=== PATIENT | female | born 1945 | race Caucasian/White ===

== ENCOUNTER → 2017-01-16 | Outpatient (REF) ==
[~2017-01-16] MED LIST: ATENOLOL PO; IMDUR 60MG60 MG/TAB PO; LISINOPRIL PO; NITROGLYCERIN PO
[2017-01-16 19:30] LABS: TOTAL IRON BINDING CAPACITY 445 ug/dL (265-497)
[2017-01-16 19:56] LABS: FERRITIN 8 ng/mL (11-264)
== END ==
LOC: ZLAB.WCH 18:14
PROVIDERS: Family Medicine
DX: Z01.89 Encounter for other specified special examinations (principal)

== ENCOUNTER → 2017-03-05 | Outpatient (REF) ==
[2017-03-05 18:32] LABS: TOTAL IRON BINDING CAPACITY 327 ug/dL (265-497)
[2017-03-05 18:59] LABS: FERRITIN 22 ng/mL (11-264)
== END ==
LOC: ZLAB.WCH 18:08
PROVIDERS: Family Medicine
DX: Z01.89 Encounter for other specified special examinations (principal)

== ENCOUNTER → 2017-09-05 | Outpatient (REF) | LOC: ZLAB.WCH 08:47 | DX: Z01.89 Encounter for other specified special examinations (principal) ==

== ENCOUNTER → 2018-11-12 | Outpatient (REF) | LOC: ZLAB.WCH 17:11 | DX: Z01.89 Encounter for other specified special examinations (principal) ==

== ENCOUNTER → 2018-12-23 | Outpatient (REF) ==
[2018-12-23 11:18] LABS: THYROID STIMULATING HORMONE 2.29 uIU/mL (0.465-4.680)
== END ==
LOC: ZLAB.WCH 10:27
PROVIDERS: Internal Medicine
DX: Z01.89 Encounter for other specified special examinations (principal)

== ENCOUNTER 2019-01-25 13:46 | Emergency (ER) | payer MEDICARE, BC ==
[~2019-01-25] VITALS: Ht 157.5 cm; Wt 65.9 kg
[~2019-01-25 13:46] MED LIST changes: -IMDUR 60MG60 MG/TAB PO
[2019-01-25 14:08] VITALS: BP 167/74; TEMP 98.7
[2019-01-25] MEDS ORDERED: PLAVIX 75MG TAB75 MG PO (17:03)
[2019-01-25] MEDS ORDERED: AMBIEN 5MG TABLE5 MG PO (17:03)
[2019-01-25] MEDS ORDERED: COREG12.5 MG PO (17:04)
[2019-01-25] MEDS ORDERED: LEXAPRO 10MG10 MG PO (17:04)
[2019-01-25] MEDS ORDERED: PRINIVIL40 MG PO (17:05)
[2019-01-25] MEDS ORDERED: NITROSTAT0.4 MG/TAB SL (17:06)
[2019-01-25] MEDS ORDERED: BACTROBAN 22GM22 GM NAS (17:06)
[2019-01-25] MEDS ORDERED: PROTONIX 40MG T40 MG PO (17:07)
[2019-01-25] MEDS ORDERED: IMDUR 60MG60 MG/TAB PO (17:08)
[2019-01-25] MEDS ORDERED: ASPIRIN E.C. 8181 MG PO (17:09)
[2019-01-25] MEDS ORDERED: PROVENTIL0.09 MG/A1 IH (17:10)
[2019-01-25] MEDS ORDERED: ALBUTEROL0.83 MG/ML IH (17:11)
[2019-01-25 18:00] VITALS: PULSE 54
== END 2019-01-25 18:00 | disposition home or self-care (01) ==
LOC: COL.ER 13:46
DX: K59.00 Constipation, unspecified (principal); I25.10 Atherosclerotic heart disease of native coronary artery without angina pectoris; N18.9 Chronic kidney disease, unspecified; J44.9 Chronic obstructive pulmonary disease, unspecified; I50.9 Heart failure, unspecified; I73.9 Peripheral vascular disease, unspecified; Z79.02 Long term (current) use of antithrombotics/antiplatelets; Z79.82 Long term (current) use of aspirin

== ENCOUNTER 2020-02-28 21:25 | Inpatient (IN) | payer MEDICARE, BC ==
[~2020-02-28] VITALS: Ht 157.5 cm; Wt 73.5 kg
[~2020-02-28 21:25] MED LIST changes: +ALBUTEROL0.83 MG/ML IH; +AMBIEN 5MG TABLE5 MG PO; +ASPIRIN E.C. 8181 MG PO; +BACTROBAN 22GM22 GM NAS; +COREG12.5 MG PO; +IMDUR 60MG60 MG/TAB PO; +LEXAPRO 10MG10 MG PO; +NITROSTAT0.4 MG/TAB SL; +PLAVIX 75MG TAB75 MG PO; +PRINIVIL40 MG PO; +PROTONIX 40MG T40 MG PO; +PROVENTIL0.09 MG/A1 IH
[2020-02-28] MEDS ORDERED: RANEXA 500MG T500 MG PO (21:35)
[2020-02-28] MEDS ORDERED: LASIX 40MG TABL40 MG PO (21:36)
[2020-02-28] MEDS ORDERED: APRESOLINE50 MG PO (21:36)
[2020-02-28 22:32] LABS: BASO % 0.5 % (0.0-2.0); EOS # 0.1 (0.0-0.7); EOS % 1.3 % (0-4.0); GRAN % 84.9 % (42.2-75.2); HEMOGLOBIN 10.6 g/dl (12.5-16.0); LYMPH # 0.4 (1.2-3.4); LYMPH % 4.7 % (20.0-51.0); MEAN CELL VOLUME 95 fl (80.0-100.0); MEAN CORPUSCULAR HEMOGLOBIN 30 pg (27.0-31.0); MEAN CORPUSCULAR HGB CONC 32 g/dl (33.0-37.0); MEAN PLATELET VOLUME 10.8 fl (7.4-10.4); MONO # 0.6 (0.1-0.6); MONO % 7.3 % (1.7-9.3); PLATELET COUNT 171 K/mm3 (130-400); REDCELL DISTRIBUTION WIDTH-CV 15.4 % (11.5-14.5)
[2020-02-28 22:39] LABS: HEMATOCRIT 33.1 % (37.0-47.0)
[2020-02-28 22:43] LABS: ALBUMIN 3.8 gm/dL (3.5-5.0); BILIRUBIN,TOTAL 0.5 mg/dL (0.0-1.0); CALCIUM 8.3 mg/dL (8.4-10.2); CREATININE, serum 2.96 (0.52-1.25); POTASSIUM 4.4 mmol/L (3.4-5.0); TOTAL PROTEIN 6.3 gm/dL (6.4-8.2)
[2020-02-28 22:48] LABS: INR 0.9 (0.8-3.0); PROTHROMBIN TIME 9.9 SECONDS (9.7-12.8)
[2020-02-28 23:38] LABS: COLLECTION METHOD CATHETER
[2020-02-28 23:59] LABS: PH 6 (5-8); SQUAMOUS EPITHELIAL None Seen /hpf; URINE APPEARANCE Clear; URINE BACTERIA None Seen /hpf; URINE BILIRUBIN Negative (NEGATIVE); URINE BLOOD Negative (NEGATIVE); URINE COLOR Yellow; URINE GLUCOSE Negative (NEGATIVE); URINE KETONE Negative (NEGATIVE); URINE LEUKOCYTE ESTERASE Negative (NEGATIVE); URINE NITRATE Negative (NEGATIVE); URINE PROTEIN(semi-quant) Negative (NEGATIVE); URINE RBC 0-2 /hpf; URINE UROBILINOGEN Negative (NEGATIVE)
[2020-02-29] VITALS (250 sets, daily range): BP systolic 91–179; BP diastolic 35–70; PULSE 54–87; TEMP 97.2–98.9; O2SAT 87–100
[2020-02-29] MEDS ORDERED: BENADRYL50 MG PO (01:46)
[2020-02-29] MEDS ORDERED: MUCINEX 60600 MG/TA1 PO (01:47)
[2020-02-29] MEDS ORDERED: OMEGA-3 1000 MG1 CAP PO (01:48)
[2020-02-29] MEDS ORDERED: APRESOLINE50 MG PO (01:53)
[2020-02-29] MEDS ORDERED: HYDRALAZINE HC100 MG PO (01:54)
--- NOTE | 2020-02-29 04:24 | NUR ---
Patient states pain 9/10 upon arrival to the floor. PRN morphine 2mg administered with relief to an 8/10. Carolann Portillo updated and pain medication switched to Dilaudid PRN. This was administered and effective as evidenced by patient sleeping upon reassessment. 2L oxygen via nasal cannula to keep oxygen saturations above 90%. Patient wears 2L at baseline at home during the night. IVF continue to left wrist. Magana catheter present and draining slightly cloudy, yellow urine. 5 page completed. Med rec completed with and he stressed the importance of keeping the times she takes them. This was discussed with Bandar Vuong and SOUMYAR updated. also stated that patient is allergic to the "new surgical scrub they use now and she breaks out in a really bad rash". He states she has no reactions to betadine. Carolann updated on this and will pass this on to day shift nurse and ortho. Patient noted to be hypertensive upon arrival to the unit. Caroalnn Portillo APRN notified and ordered PRN IV Hydralazine. Administered and effective.
--- NOTE | 2020-02-29 07:00 | NUR ---
CALLED CARDIOLOGY & NEPHROLOGY CONSULTS. SEE ORDERS.
[2020-02-29 07:14] LABS: BASO % 0.3 % (0.0-2.0); EOS # 0.1 (0.0-0.7); EOS % 0.7 % (0-4.0); GRAN # 6.1 (1.4-6.5); GRAN % 81.9 % (42.2-75.2); HEMOGLOBIN 10.2 g/dl (12.5-16.0); LYMPH # 0.4 (1.2-3.4); LYMPH % 5.8 % (20.0-51.0); MEAN CELL VOLUME 96 fl (80.0-100.0); MEAN CORPUSCULAR HEMOGLOBIN 30 pg (27.0-31.0); MEAN CORPUSCULAR HGB CONC 31 g/dl (33.0-37.0); MEAN PLATELET VOLUME 10.8 fl (7.4-10.4); MONO # 0.8 (0.1-0.6); MONO % 10.2 % (1.7-9.3); PLATELET COUNT 146 K/mm3 (130-400); RED BLOOD COUNT 3.39 M/mm3 (4.10-5.30); REDCELL DISTRIBUTION WIDTH-CV 15.3 % (11.5-14.5)
--- NOTE | 2020-02-29 07:15 | NUR ---
PATIENT PLACED ON TELE
[2020-02-29 07:18] LABS: HEMATOCRIT 32.6 % (37.0-47.0)
[2020-02-29 07:26] LABS: ALBUMIN 3.7 gm/dL (3.5-5.0); BILIRUBIN,TOTAL 0.3 mg/dL (0.0-1.0); CALCIUM 8.5 mg/dL (8.4-10.2); CREATININE, serum 2.63 (0.52-1.25); POTASSIUM 4.2 mmol/L (3.4-5.0); TOTAL PROTEIN 6.2 gm/dL (6.4-8.2)
[2020-02-29 07:27] LABS: INR 0.9 (0.8-3.0); PROTHROMBIN TIME 10.2 SECONDS (9.7-12.8)
[2020-02-29 07:33] LABS: PRE ALBUMIN 32.6 mg/dL (17.6-36.0)
--- NOTE | 2020-02-29 08:00 | NUR ---
PATIENT IS A&O. VSS. PATIENT C/O PAIN IN LLE RATED AT 6/10. GAVE PRN IV DILAUDID. PATIENT IS ON BEDREST, SURGERY PENDING. BEDREST. PATIENT HAS SIGNIFICANT CARDIAC HX, SEE CONSULTS. VSS. TELE INPLACE. PATIENT IS NPO. IV FLUIDS INFUSING VIA PUMP INTO LEFT WRIST IV. RENATA TO BRANDT. CONSENT ON CHART. HEAD TO TOE ASSESSMENT COMPLETE. PATIENT RESTING IN BED WITH NO OTHER NEEDS. CALL LIGHT IN REACH.
--- NOTE | 2020-02-29 12:43 | NUR ---
First visit from the youth director. No needs right now.
--- NOTE | 2020-02-29 12:56 | NUR ---
LILIANA met with the patient and her , Francisco J Leavitt to complete initial intake. The patient lives in [place] with Francisco J. The patient has a cane, walker, and uses 3L of oxygen at night and during the day while napping. The patient's PCP is Dr. Tanner and patient receives medications from [facility] with no difficulties. The patient does not have advanced directives in the EMR but they are completed. The patient provided a copy, it was placed in the patient's chart. The patient may be needing post acute rehab. LILIANA presented Medicare.gov's list of post acute rehab in [place]. The patient and her 's first choice is [place] [facility] and second choice is [facility]. Referrals sent. Will continue to monitor.
--- NOTE | 2020-02-29 13:24 | NUR ---
PATIENT GOING DOWN FOR BALDEMAR SCAN. GAVE PRN IV DILAUDID
--- NOTE | 2020-02-29 14:39 | NUR ---
PATIENT NOW BACK IN ROOM AFTER BALDEMAR SCAN
--- NOTE | 2020-02-29 15:15 | NUR ---
PATIENT GOING DOWN TO INTERNATIONAL FIRST OFFICER FOR CARDIAC CATH
--- NOTE | 2020-02-29 16:20 | NUR ---
LATHE SET UP PERSON NOTIFIED NURSING THAT PATIENT WILL BE GOING TO ICU POST HEART CATH.
--- NOTE | 2020-02-29 16:23 | NUR ---
SEE MERGE DOCUMENTATION FOR MEDICATION ADMINISTRATION AND INTRA/POST PROCEDURE SEDATION ASSESSMENTS.
--- NOTE | 2020-02-29 16:40 | NUR ---
CALLED REPORT TO ICU NURSE. PATIENT GOING TO ICU15
--- NOTE | 2020-02-29 17:40 | NUR ---
ARRIVES TO ICU 17 VIA BED FROM AQUARIST WITH RN X2 AT BEDSIDE. PT AWAKENS EASILY. RIGHT RADIAL CATH SITE ASSESSED WITH TR IN PLACE WITH MONICA MCBRIDE. NO BLEEDING AT THIS TIME. MONITORS APPLIED. CALL LIGHT AT SIDE. DENIES NEEDS AT THIS TIMES.
--- NOTE | 2020-02-29 20:00 | NUR ---
UNABLE TO ASSESS PT'S BACK SHE REFUSED DUE TO PAIN. PT REFUSED TURNING WELL.
[2020-02-29 20:26] LABS: INR 1.6 (0.8-3.0); PROTHROMBIN TIME 17.9 SECONDS (9.7-12.8)
[2020-02-29 20:29] LABS: CALCIUM 8.3 mg/dL (8.4-10.2); CREATININE, serum 2.34 (0.52-1.25); POTASSIUM 4.1 mmol/L (3.4-5.0)
[2020-02-29 20:30] LABS: MEAN CELL VOLUME 97 fl (80.0-100.0); MEAN CORPUSCULAR HGB CONC 31 g/dl (33.0-37.0); MEAN PLATELET VOLUME 10.9 fl (7.4-10.4); PLATELET COUNT 147 K/mm3 (130-400); REDCELL DISTRIBUTION WIDTH-CV 15.2 % (11.5-14.5)
[2020-02-29 20:33] LABS: HEMATOCRIT 30.9 % (37.0-47.0); HEMOGLOBIN 9.5 g/dl (12.5-16.0); MEAN CORPUSCULAR HEMOGLOBIN 30 pg (27.0-31.0)
[2020-02-29 21:11] LABS: PARTIAL THROMBOPLASTIN TIME 146.4 SECONDS (26.0-37.0)
--- NOTE | 2020-02-29 21:40 | NUR ---
TR BAND RELEASED BY 4 ML OF AIR. 1O ML OF AIR LEFT IN BAND. NO BLEEDING OR HEMATOMA NOTED.
--- NOTE | 2020-02-29 21:50 | NUR ---
PTT AF 146.4 REPORTED TO SHASHANK STOKES. REPEAT LABS IN AM PER DISTRICT ENGINEER'S ORDER.
--- NOTE | 2020-02-29 22:45 | NUR ---
TR BAND RELEASED BY 5 ML OF AIR. NOW 5 ML OF AIR LEFT. NO SIGNS OF BEEDING AND HEMATOMA NOTED.
--- NOTE | 2020-02-29 23:50 | NUR ---
TR BAND COMPLETELY OFF. BAND AID APPLIED TO SITE. NOW CLEAN, DRY AND INTACT.
--- NOTE | 2020-02-29 23:56 | NUR ---
PT HAS NITROGLYCERINE DRIP RUNNING AT 10 MCG/MIN AT 3 ML. NO ACTIVE ORDER IS ON THE MAR AND PREVIOUS ORDER WAS DISCONTINUED. THIS RN TRIED CALLING DR. MCGEE 3X TO VERIFY ORDER, FIRST AT 2243, 2300, AND 2355. STILL AWAITING FOR CALL BACK AT THIS TIME.
[2020-03-01] VITALS (416 sets, daily range): BP systolic 93–145; BP diastolic 43–88; PULSE 53–77; TEMP 97.8–98.4; O2SAT 89–100
[2020-03-01 05:24] LABS: BASO % 0.4 % (0.0-2.0); EOS # 0.1 (0.0-0.7); EOS % 1.7 % (0-4.0); GRAN # 6.5 (1.4-6.5); GRAN % 82.9 % (42.2-75.2); LYMPH # 0.3 (1.2-3.4); LYMPH % 3.8 % (20.0-51.0); MEAN CELL VOLUME 97 fl (80.0-100.0); MEAN CORPUSCULAR HGB CONC 31 g/dl (33.0-37.0); MEAN PLATELET VOLUME 10.6 fl (7.4-10.4); MONO # 0.8 (0.1-0.6); MONO % 9.8 % (1.7-9.3); PLATELET COUNT 146 K/mm3 (130-400); REDCELL DISTRIBUTION WIDTH-CV 15.3 % (11.5-14.5)
[2020-03-01 05:31] LABS: HEMATOCRIT 31.1 % (37.0-47.0); HEMOGLOBIN 9.5 g/dl (12.5-16.0); MEAN CORPUSCULAR HEMOGLOBIN 30 pg (27.0-31.0)
[2020-03-01 05:33] LABS: CALCIUM 8.8 mg/dL (8.4-10.2); CREATININE, serum 2.56 (0.52-1.25); POTASSIUM 4.2 mmol/L (3.4-5.0)
[2020-03-01 05:54] LABS: PROTHROMBIN TIME 10.9 SECONDS (9.7-12.8)
[2020-03-01 05:56] LABS: PARTIAL THROMBOPLASTIN TIME 37.2 SECONDS (26.0-37.0)
--- NOTE | 2020-03-01 07:10 | NUR ---
report given to MONICA Nicolas.
--- NOTE | 2020-03-01 07:15 | NUR ---
Report received from Lourdes ANDERSON and care resumed.
--- NOTE | 2020-03-01 08:15 | NUR ---
Dr Soni in to see pt at this time. Clarified nitro as drip was infusing but no orders. Verbal order received to dc at this time.
--- NOTE | 2020-03-01 11:40 | NUR ---
Received call from OR that pt was going for surgery in about 10 minutes. No orders placed. Will call Dr Multani.
--- NOTE | 2020-03-01 11:52 | NUR ---
Dr Mckeon in to see pt at this time.
--- NOTE | 2020-03-01 12:08 | NUR ---
Pt to OR per bed at this time.
--- NOTE | 2020-03-01 12:13 | NUR ---
Report called to Bonnie ANDERSON on surgical floor.
--- NOTE | 2020-03-01 14:45 | NUR ---
Patient is back from surgery. She is drowsy and oriented. Denies nausea at this time. Oriented patient to room. Her is at bedside. Dressing to left hip is C/D/I. Patient stated she is uncomfortably but is not able to stay awake enough to rate pain. No other changes at this time. Call light within reach.
--- NOTE | 2020-03-01 18:30 | NUR ---
Patient is doing well this evening. [place] given for pain, she stated it is helping. No complaints of nausea. Explained she needs to be doing ankle pumps and using her incentive spirometer. Patient is wanting a nicotine patch, notified hospitalist. No other changes at this time. Call light within reach.
--- NOTE | 2020-03-01 20:00 | NUR ---
Pt in bed. Previously walked to bathroom with 2 assist and walker to have a BM, only passed flatus. Has blandon catheter to BSD with yellow urine. Taking fluids well. Reports pain to left hip 5/10, has bulky dressing D/I. Wearing oxygen at 2L/nc, wears at home. Is alert and oriented x4. Medicated with HS meds including [place] 2 tabs po and placed Nicotene patch on right deltoid. SL to left hand, flushes well.
--- NOTE | 2020-03-01 23:57 | NUR ---
Medicated with Ambien 10mg po for sleep and [place] 2 tabs po at this time for pain 6/10 to left leg/hip. Asked about Hydralazine for her BP, none needed at this time.
[2020-03-02] VITALS (7 sets, daily range): BP systolic 113–178; BP diastolic 41–63; PULSE 67–82; TEMP 97.8–99
--- NOTE | 2020-03-02 05:12 | NUR ---
Pt awake, given scheduled AM meds and [place] 2 tabs at this time for pain to left leg 12/09.
--- NOTE | 2020-03-02 07:00 | NUR ---
Patient is very agitated and is yelling at staff during shift change this morning. Patient appears to be unhappy that he was put on the bedpan eariler in the shift. Patient is also loudly demanding breakfast, patient was assured that it would arrive soon, and was offered toast or cereal in the meantime, he refused both. Patient is requesting his , informed patient that his is not here, assured him we could call her during her specified hours of availablility. Patient educated unified communications engineer light use as the most effective method of communicating his needs. Patient verbalizes understaning. Call light within reach.
[2020-03-02 07:55] LABS: CALCIUM 8.4 mg/dL (8.4-10.2); CREATININE, serum 4.2 (0.52-1.25); POTASSIUM 5.3 mmol/L (3.4-5.0)
[2020-03-02 07:58] LABS: BASO % 0.3 % (0.0-2.0); GRAN % 89.2 % (42.2-75.2); LYMPH # 0.1 (1.2-3.4); LYMPH % 1.5 % (20.0-51.0); MEAN CELL VOLUME 93 fl (80.0-100.0); MEAN CORPUSCULAR HGB CONC 32 g/dl (33.0-37.0); MEAN PLATELET VOLUME 11.8 fl (7.4-10.4); MONO # 0.6 (0.1-0.6); MONO % 7.7 % (1.7-9.3); PLATELET COUNT 145 K/mm3 (130-400); RED BLOOD COUNT 2.58 M/mm3 (4.10-5.30)
--- NOTE | 2020-03-02 08:00 | NUR ---
Patient resting in bed eating breakfast at this time. Patient is alert and oriented, answers questions appropriately. Patient reports that pain is well controlled at this time. Magana in place per order. Bulky dressing on left hip is CDI. Patient denies further needs at this time, call light within reach.
--- NOTE | 2020-03-02 08:00 | NUR ---
Patient resting upon entering room. Administered PO medications per order, paitent able to swallow them whole with no difficulties. Set up patient breakfast and cut necessary breakfast items. Coffee made to patient specifications and drinks arranged per his prefrence. Patient denies needs at this time, call light within reach, patient is reminded to use it when he has needs, patient verbalized understanding.
[2020-03-02 08:21] LABS: HEMATOCRIT 24.1 % (37.0-47.0); HEMOGLOBIN 7.7 g/dl (12.5-16.0); MEAN CORPUSCULAR HEMOGLOBIN 30 pg (27.0-31.0)
--- NOTE | 2020-03-02 09:00 | NUR ---
Patient agitated, yelling, and shaking bedrails/table upon entering room. Patient complains that his call light does not work, no one answers the call light, and no one has come to help him. Assured patient that his call light does work, informed him that his call light was answered, but he may not have heard. Assisted patient to use the urinal, voided approximately 100 ml of clear yellow urine. Patient has eaten 100% of breakfast, removed tray per patient request. Patient denies further needs, call light witin reach.
--- NOTE | 2020-03-02 10:30 | NUR ---
Patient remains intermittently agitated when staff members do not respond to call light as soon as it is answered. Upon entering the room, patient states that his calls are being ignored and that he has been waiting for over half an hour with no help. Assured patient that his call light was answered because staff was informed he needed help. Patient voided approximately 75 ml of clear yellow urine in the urinal. Gave patient room phone and informed him he could call his . Patient calling at this time.
--- NOTE | 2020-03-02 10:59 | NUR ---
LILIANA contacted the patient's to discuss the plan. He was agreeable to home with [facility]. Will continue to follow.
--- NOTE | 2020-03-02 17:30 | NUR ---
Patient resting in bed at this time. Patient is alert and oriented, answers questions appropriately. Patient reports that her pain is well controlled after pain medication. Magana removed per order, 10 ml of water removed from balloon, catheter tip intact upon removal, patient tolerated procedure well. Patient denies further needs at this time, call light within reach.
[2020-03-02 17:44] LABS: HEMATOCRIT 23.2 % (37.0-47.0); HEMOGLOBIN 7.5 g/dl (12.5-16.0)
--- NOTE | 2020-03-02 19:43 | NUR ---
Notified Derrick MCGEE regarding elevated B/P and pt normally takes Hydralazine.
--- NOTE | 2020-03-02 21:37 | NUR ---
PT IN BED, HAS NOT VOIDED SINCE YANEZ REMOVED. IS ALERT AND ORIENTED X4. HAS IVF INFUSING TO LEFT HAND WITHOUT PROBLEM. HAS ELEVATED B/P, IV HYDRALAZINE 10MG GIVEN AT THIS TIME FOR B/P 178/63. HS MEDS INCLUDING NORCO 2 TABS GIVEN AT THIS TIME WELL. BULKY DRSG TO LEFT HIP INTACT. SCD'S/TEDS ON.
--- NOTE | 2020-03-02 23:30 | NUR ---
B/P IMPROVED TO 150/46.
[2020-03-03] VITALS (11 sets, daily range): BP systolic 126–198; BP diastolic 47–89; PULSE 60–82; TEMP 97.7–98.4
--- NOTE | 2020-03-03 01:26 | NUR ---
Pt felt like her B/P was elevated, medicated with Hydralazine 10mg IVP for B/P 193/71.
--- NOTE | 2020-03-03 02:04 | NUR ---
PT B/P DOWN TO 175/61. PT REPORTS PAIN TO LEFT HIP, MEDICATED WITH DILAUDID AT THIS TIME.
--- NOTE | 2020-03-03 04:56 | NUR ---
PT UP TO BATHROOM, VOIDS AND BACK TO BED. GAIT SLOW, UNSTEADY. MEDICATED WITH NORCO 2 TABS ONCE BACK TO BED.
[2020-03-03 06:51] LABS: MEAN CELL VOLUME 94 fl (80.0-100.0); MEAN CORPUSCULAR HGB CONC 32 g/dl (33.0-37.0); MEAN PLATELET VOLUME 11.2 fl (7.4-10.4); PLATELET COUNT 181 K/mm3 (130-400); RED BLOOD COUNT 2.78 M/mm3 (4.10-5.30); REDCELL DISTRIBUTION WIDTH-CV 15.2 % (11.5-14.5)
[2020-03-03 06:52] LABS: HEMOGLOBIN 8.4 g/dl (12.5-16.0); MEAN CORPUSCULAR HEMOGLOBIN 30 pg (27.0-31.0)
--- NOTE | 2020-03-03 07:00 | NUR ---
Bedside shift report received from MONICA Colon. pT in bed resting, denies needs, 02 at 3L will continue to monitor.
[2020-03-03 07:02] LABS: CALCIUM 8.4 mg/dL (8.4-10.2); POTASSIUM 5.3 mmol/L (3.4-5.0)
[2020-03-03 07:32] LABS: BAND 10 % (0-10); LYMPHOCYTE 5 % (20.0-51.0); NEUTROPHILS 81 % (42.0-75.2); PLATELET ESTIMATE NORMAL (NORMAL)
--- NOTE | 2020-03-03 08:33 | NUR ---
Assessmetn charted. PT removed own 02 and upon assessment pt 02 levels were 60%, replaced 02 and pt able to get back to 93% on 3L NC. Pt is sleepy and lethargic this morning, reviewed labs. LLE has 3 dressings, replaced per orders with gauze and tegaderm. IVF to LH. Denies other needs, will continue to monitor.
--- NOTE | 2020-03-03 08:39 | NUR ---
LILIANA contacted Inge with [facility] and they can take the patient on for services. She can start on Friday and the patient and her were in agreeance.
--- NOTE | 2020-03-03 11:09 | NUR ---
Bladder scan completed by MONICA Mathews. PT had 28mls at most in bladder, has only voidedx1 since 1700 on 03/02/20. notified hospitalist.
--- NOTE | 2020-03-03 12:01 | NUR ---
Call received from Francisco J regarding pt status and needs, he is frustrated that he has not received updates from the physicians and his is unable to retain and pass onto effectively. Calling hospitalist to pass on information.
--- NOTE | 2020-03-03 17:23 | NUR ---
Daughter called, very concerned regarding home hydralizine being on hold at this time. She is very concerned that her mother is having active chest pain from high blood pressure during the night, reivewed IV hydralazine options but daughter remains concerned.
--- NOTE | 2020-03-03 18:41 | NUR ---
Pt called out and reported that "she was puking", upon entry pt had vomited, called and reports pt c/o shortness of breath, pt has not called and reported any of these symptoms to the staff but is calling family or notifying family of these symptoms. RT provided breathing treatment and pt oxygenation is adequate. Notified hospitalist several times over shift of patient complaints. Resting in bed, will give bedside shift report to nightshift nurse who will resume care.
--- NOTE | 2020-03-03 19:14 | NUR ---
Pt continues to c/o shortnes of breath and nausea. calling SHASHANK Corbett on nights for hospitalist and will update her with complaints.
--- NOTE | 2020-03-03 19:35 | NUR ---
PT REPORTS FEELING "BAD". HAS NAUSEA AND PAIN TO LEFT HIP. MEDICATED WITH ZOFRAN 4MG IVP AND DILAUDID 0.5MG IVP PT FELT SHE WOULD VOMIT IF SHE TOOK PO MEDS. RESTARTED IV SITE TO RIGHT FOREARM. DC'D LEFT HAND SITE. LUNGS CLEAR, INCREASED OXYGEN TO 4L/NC TO GET PT TO 90%. EYES ARE PUFFY AND ABD IS DISTENDED. DENIES NEED TO URINATE OR HAVE BM.
--- NOTE | 2020-03-03 19:43 | NUR ---
SBP 175, MEDICATED WITH HYDRALAZINE 10MG IVP AT THIS TIME. PT AFFECT FLAT, DOES NOT OPEN EYES WHEN SPOKEN TO.
[2020-03-03 19:50] LABS: CALCIUM 7.9 mg/dL (8.4-10.2); CREATININE, serum 6.57 (0.52-1.25)
[2020-03-03 20:17] LABS: POTASSIUM 5.8 mmol/L (3.4-5.0)
--- NOTE | 2020-03-03 22:00 | NUR ---
INSERTED #16FR YANEZ CATHETER TO BSD, RETURN OF HAZY YELLOW URINE 40CC. MEDICATED WITH IV PHENERGAN 25MG PRIOR TO DOSE OF 45GM OF KAEXALATE. IV LASIX 40MG GIVEN WELL. PT WITHOUT N/V AT THIS TIME.
--- NOTE | 2020-03-03 22:26 | NUR ---
MEDICATED WITH IV MORPHINE FOR LEFT HIP PAIN. TAKES ORAL APRESOLINE AT THIS TIME FOR ELEVATED B/P AND HEADACHE.
--- NOTE | 2020-03-03 23:30 | NUR ---
Pt denies needs at this time.
[2020-03-04] VITALS (7 sets, daily range): BP systolic 129–182; BP diastolic 53–69; PULSE 62–105; TEMP 98.1–99.1
--- NOTE | 2020-03-04 03:42 | NUR ---
Medicated with Zofran 4mg IVP for nausea.
--- NOTE | 2020-03-04 03:43 | NUR ---
Pt complains of headache, thinks B/P is high. Medicated with Morphine 2mg IVP for pain to left hip 04/10, Apresoline 10mg IVP for SBP 182. No stools so far this shift.
--- NOTE | 2020-03-04 05:15 | NUR ---
Asks for RT treatment, notified Antony from respiratory. Medicated with Morphine 2mg IVP for pain to left hip. Takes AM meds as scheduled.
[2020-03-04 07:32] LABS: MEAN CELL VOLUME 94 fl (80.0-100.0); MEAN CORPUSCULAR HGB CONC 32 g/dl (33.0-37.0); PLATELET COUNT 144 K/mm3 (130-400); RED BLOOD COUNT 2.38 M/mm3 (4.10-5.30); REDCELL DISTRIBUTION WIDTH-CV 15.3 % (11.5-14.5)
[2020-03-04 07:34] LABS: HEMATOCRIT 22.4 % (37.0-47.0); HEMOGLOBIN 7.1 g/dl (12.5-16.0); MEAN CORPUSCULAR HEMOGLOBIN 30 pg (27.0-31.0)
[2020-03-04 07:38] LABS: ALBUMIN 3.1 gm/dL (3.5-5.0); ALKALINE PHOSPHATASE 48 U/L (50-136); ANION GAP 12 mmol/L (7-16); AST,SGOT 19 U/L (15-37); BILIRUBIN,TOTAL 0.3 mg/dL (0.0-1.0); BLOOD UREA NITROGEN 104 mg/dL (7-17); CALCIUM 7.7 mg/dL (8.4-10.2); CARBON DIOXIDE 23 mmol/L (22-30); CHLORIDE 96 mmol/L (98-107); CREATININE, serum 6.93 (0.52-1.25); GLUCOSE 108 mg/dL (74-106); MAGNESIUM 2.5 mg/dL (1.6-2.3); POTASSIUM 5.4 mmol/L (3.4-5.0); SODIUM 130 mmol/L (137-145); TOTAL PROTEIN 5.6 gm/dL (6.4-8.2)
[2020-03-04 07:41] LABS: ALANINE AMINOTRANSFERASE < 4 U/L (4-34); PHOSPHOROUS 10.3 mg/dL (2.5-4.5)
--- NOTE | 2020-03-04 10:04 | NUR ---
Fall protocol intiated r/t fall at home with hip fx.
[2020-03-04 10:31] LABS: BAND 1 % (0-10); LYMPHOCYTE 3 % (20.0-51.0); NEUTROPHILS 91 % (42.0-75.2)
--- NOTE | 2020-03-04 11:15 | NUR ---
Dr Mckeon here to see patient.
--- NOTE | 2020-03-04 11:16 | NUR ---
Patient alert and oriented, answers questions appropriately. See assessment. Left hip incision with edges well approximated, no redness or drainage noted, dressing changed. Neuros intact to LLE, no numbness or tingling reported, pulses palpable. ROM to LLE decreased, leg exercises encouraged. Abdomen rounded, bowel sounds hypoactive. Magana catheter in place and patent. C/o SOA at rest, lungs coarse in bases, clear in upper lobes. Oxygen at 4l/nc. C/o pain to LLE 12/09. No other c/o at this time.
--- NOTE | 2020-03-04 12:18 | NUR ---
Dr Moyer here to see patient.
--- NOTE | 2020-03-04 12:50 | NUR ---
To surgery with surgical staff for dialysis catheter placement at this time.
--- NOTE | 2020-03-04 14:12 | NUR ---
Patient returned from procedures at 1400, directly to dialysis after.
--- NOTE | 2020-03-04 16:09 | NUR ---
SW stopped by patients room and discussed IM form. LILIANA left form for patient to read over and sign. Will spanish moss picker tomorrow.
--- NOTE | 2020-03-04 19:48 | NUR ---
Pt remains in Afib RVR with rate 110-130's, order received from Dr Mckeon for Lopressor 10mg IVP, given at this time slow over 5 minutes. Pt reports feeling much better after having dialysis today. Has right neck dialysis catheter. Pts eyes are less puffy and abdomen is significantly less distended. Pt has yellow urine in blandon, to BSD. Left hip dressings x3 intact, has bruising to top incision and ice pack in place. Pt thought she had a BM in the bed, rolled to side and cleansed area, no stool only smear. Wearing oxygen at 3L/NC. Denies nausea or shortness of breath.
--- NOTE | 2020-03-04 21:08 | NUR ---
SPOKE WITH DR ALANIZ PT HAS CONVERTED TO SR. NO NEW ORDERS
--- NOTE | 2020-03-04 21:15 | NUR ---
Medicated with Hs meds including Ambien 10mg and [place] 2 tabs at this time.
[2020-03-05] VITALS (14 sets, daily range): BP systolic 143–180; BP diastolic 49–77; PULSE 65–116; TEMP 97–98.8
--- NOTE | 2020-03-05 | NUR ---
PT DENIES NEEDS. TAKES SCHEDULED PO HYDRALAZINE. CONTINUES WITH OXYGEN AT 3L/NC. YANEZ WITH YELLOW URINE.
--- NOTE | 2020-03-05 05:10 | NUR ---
PT AWAKENED FOR SCHEDULED AM MEDS. TAKES MEDS WELL, DENIES NEED FOR PAIN MEDS AT THIS TIME. URINE EMPTIED FOR 150CC OF CLEAR YELLOW.
--- NOTE | 2020-03-05 05:32 | NUR ---
SPOKE WITH PTS DAUGHTER, UPDATED ON CONDITION.
[2020-03-05 09:19] LABS: MEAN CELL VOLUME 95 fl (80.0-100.0); MEAN CORPUSCULAR HGB CONC 32 g/dl (33.0-37.0); MEAN PLATELET VOLUME 11.5 fl (7.4-10.4); PLATELET COUNT 134 K/mm3 (130-400); RED BLOOD COUNT 2.08 M/mm3 (4.10-5.30)
[2020-03-05 09:23] LABS: HEMATOCRIT 19.8 % (37.0-47.0); HEMOGLOBIN 6.3 g/dl (12.5-16.0); MEAN CORPUSCULAR HEMOGLOBIN 30 pg (27.0-31.0)
[2020-03-05 09:32] LABS: CALCIUM 7.6 mg/dL (8.4-10.2); CREATININE, serum 5.04 (0.52-1.25); MAGNESIUM 2.4 mg/dL (1.6-2.3); POTASSIUM 4.5 mmol/L (3.4-5.0)
--- NOTE | 2020-03-05 09:45 | NUR ---
CRITICAL H&H CALLED TO MOY MCGEE. SHE REPORTs SHE WILL TALK TO . Patient sat up in bed this am & tolerated breakfast without nausea. Denies the need for pain medication at this time. Patient assisted with hygiene. fresh linens & bed bath provided, she did refuse oral care. Ortho rounded. Left hip dressings gauze & tegaderm clean, dry,& intact. Steven hose taken off at this time. Scds. Edema noted thorugh out body. Extensive blandon care & pericare provided. Int to Rfa. Dialysis cath to Right neck. Tegaderm intact.
--- NOTE | 2020-03-05 10:16 | NUR ---
Patient worked with therapy. Pain elevated 03/10. one tab norco for pain per request. Patient combed her hair & hair bronwyn provided to keep hair away from dialysis cath.
[2020-03-05 10:59] LABS: BAND 1 % (0-10); LYMPHOCYTE 12 % (20.0-51.0); NEUTROPHILS 84 % (42.0-75.2)
[2020-03-05 11:00] LABS: HYPOCHROMIA 1+; PLATELET ESTIMATE NORMAL (NORMAL)
--- NOTE | 2020-03-05 11:21 | NUR ---
DM WITH UNIT OF BLOOD ORDERED & HE VERIFIED TO GIVE UNIT OF BLOOD.
--- NOTE | 2020-03-05 12:58 | NUR ---
Patient sitting up in bed, eating lunch & toleated well. terminal operations supervisor Selwyn started 20G Iv to Right hand in preperation for blood tranfusion. Current INT was a 22G. Vss on O2. Blood infusion started per protocol to right hand 60ml/hr. Reviewed with patient signs & symptoms of transfusion reaction. She verified understanding & will vocalize any complaints.
--- NOTE | 2020-03-05 14:19 | NUR ---
Patient resting in bed, Vss. Continues to tolerate blood transfusion without signs or symptoms of a reactions. Rt at bedside.
[2020-03-05 16:39] LABS: HEPATITIS B SURFACE ANTIGEN Negative (Negative)
--- NOTE | 2020-03-05 16:56 | NUR ---
Patient resting in bed. Report pain increased again. One tab norco for pain per request. Delio hose placed back on patient, instructed on the importance of delio hose being removed every 6 hours & to ask for assistance of not being offered Delio hose removal. Blood transfusion completed & patient tolerated well. IV back to INT. BP elevated- will recheck after coreg given to assess if it remains high after transfusion. H&H to be rechecked.
[2020-03-05 17:23] LABS: HEPATITIS B SURFACE ANTIBODY <2.0 (())
[2020-03-05 17:24] LABS: HEPATITIS C VIRUS ANTIBODY Negative (Negative)
[2020-03-05 17:42] LABS: HEMATOCRIT 22.9 % (37.0-47.0); HEMOGLOBIN 7.5 g/dl (12.5-16.0)
--- NOTE | 2020-03-05 20:00 | NUR ---
Pt. sittingup in bed at this time. Pt. is A&OX3, assessment complete. INT to rt. wrist and rt. hand patent. Pt. reports pain at a 6 on pain scale to lt. hip. Pt. requests 2 norco with evening meds. Will give per orders. Pt. denies further needs, call light within reach.
--- NOTE | 2020-03-05 22:31 | NUR ---
Call from tele reporting irregular heart rate. EVERARDO Parekh notified. New orders received for EKG. Results called to EVERARDO Parekh.
--- NOTE | 2020-03-05 23:02 | NUR ---
Gave ordered metoprolol. Will monitor.
--- NOTE | 2020-03-05 23:56 | NUR ---
Gave second dose of Lopressor at this time.
[2020-03-06] VITALS (426 sets, daily range): BP systolic 107–191; BP diastolic 50–82; PULSE 55–130; TEMP 97.4–99; O2SAT 75–100
--- NOTE | 2020-03-06 00:33 | NUR ---
Pt. had an episode of very low heart rate and then converted back in to NSR after the second dose of Lopressor. Pt. is A&OX3. Pt. denies pain or other needs. Will continue to monitor.
--- NOTE | 2020-03-06 06:01 | NUR ---
Pt.'s remains stable this am. Pt. reports pain at a 6 on pain scale, gave pain meds per orders. Pt. denies further needs, call light within reach.
[2020-03-06 07:13] LABS: MEAN CELL VOLUME 92 fl (80.0-100.0); MEAN CORPUSCULAR HGB CONC 32 g/dl (33.0-37.0); MEAN PLATELET VOLUME 11.5 fl (7.4-10.4); PLATELET COUNT 139 K/mm3 (130-400); RED BLOOD COUNT 2.62 M/mm3 (4.10-5.30); REDCELL DISTRIBUTION WIDTH-CV 15.4 % (11.5-14.5)
[2020-03-06 07:27] LABS: HEMATOCRIT 24.2 % (37.0-47.0); HEMOGLOBIN 7.7 g/dl (12.5-16.0); MEAN CORPUSCULAR HEMOGLOBIN 29 pg (27.0-31.0)
[2020-03-06 07:30] LABS: IRON,SERUM 47 ug/dL (35-150)
[2020-03-06 07:32] LABS: CALCIUM 8.2 mg/dL (8.4-10.2); CREATININE, serum 4.31 (0.52-1.25); POTASSIUM 4.1 mmol/L (3.4-5.0)
[2020-03-06 07:39] LABS: TOTAL IRON BINDING CAPACITY 234 ug/dL (265-497)
--- NOTE | 2020-03-06 08:00 | NUR ---
Patient in bed resting. Alert and oriented x 3. Assessment complete. Lateral left thigh sites x 3 with gauze are CDI. Tedhose and SCDs to BLE. Magana to dependent drainage with clear yellow urine. INT to RH and Right forarm. Denies pain at this time. On 3L of O2 via NC. Denies further needs at this time.
[2020-03-06 08:49] LABS: EOSINOPHIL 4 % (0-4); LYMPHOCYTE 9 % (20.0-51.0); METAMYELOCYTE 1 % (0-0); NEUTROPHILS 79 % (42.0-75.2)
[2020-03-06 08:50] LABS: PLATELET ESTIMATE NORMAL (NORMAL)
--- NOTE | 2020-03-06 09:30 | NUR ---
Notified Dr. Mckeon and cardiology of increased HR while working with OT
--- NOTE | 2020-03-06 10:30 | NUR ---
Notified hospitalist and Cardology that patient is back in Afib RVR, HR 90-120. Cardiology would like patient transfered to [facility] for amiodarone drip. Notified hospitalist and supervisor lamp shades. Notified patient of plans.
--- NOTE | 2020-03-06 10:50 | NUR ---
Report called to Zoie in IMCU
--- NOTE | 2020-03-06 11:12 | NUR ---
Celebrity Chef Entrepreneur Media Personality attended clinical rounds with the team then followed up with patient about discharge plan. SW reviewed PT's note from the weekend with patient which advised patient may need to reconsider post acute rehab. Patient states her plan is to return home at discharge with [facility] and does not want SW to follow up on post acute rehab referrals at this time. SW was notified by patient's RN that patient to transfer to ICU. SW notified ICU SW, Faith and provided update. SW will continue to follow.
--- NOTE | 2020-03-06 11:20 | NUR ---
Patient down to IMCU by wheelchair.
--- NOTE | 2020-03-06 11:25 | NUR ---
Report received from MONICA You. PT brought down to room via w/c with surgical staff. Amiodorone gtt initiated with bolus at thsi time. Pt resting in bed, doing well. TEDs to legs bilaterally. L hip gamma nail sitesx3 are CDI covered with gauze and tegaderm, proximal site has area of ecchymosis. 02 at 3L NC, baseline is 2L NC. Pt has some chestp ain at this time. Scheduled meds given to assist with chest pain caused by hypertension. IV started to LFA d/t leaking IV in RW. Pt tolerated well. Resting in bed, lunch ordered. Daughter called and transferred call to room. Will continue to monitor.
--- NOTE | 2020-03-06 11:41 | NUR ---
Contacted spouse, Francisco J, updated about transfer to [facility] for amiodarone drip. All questions answered.
--- NOTE | 2020-03-06 14:23 | NUR ---
First visit from the autobody technician. No needs right now.
--- NOTE | 2020-03-06 14:57 | NUR ---
Tele patches replaced after patient worked with PT. Notified that patient appears to be in sinus rhythm again. EKG scheduled at 1530 post amiodarone initiation, will confirm with HEALTH CARE ANALYST.
--- NOTE | 2020-03-06 15:33 | NUR ---
Notified Armida ANDERSON with [facility] group of rhythm conversion to sinus. Told to continue IV amiodarone as ordered and will reassess tomorrow. Also notified hospitalist of rhythm change and plan.
--- NOTE | 2020-03-06 19:10 | NUR ---
Dr. Sparrow called at 190 to inform provider that PT HR has dropped down to the low 20's twice in the past few minutes. Amiodarone gtt off, Dr. Bowden has been paged since he is the ergonomics consultant that ordered the amiodarone. Dr. Sparrow asked which ergonomics consultant is on now ([facility]) and stated that he would contact him and to give atropine. At 1906, of patient was contacted to inform him of what was happening, how this happened the night before. became very upset, cursing because he was not informed that his had been happening. RN stated understanding of frustrations but needed to clarify patient code status. After spoke with daughter, the decision was made to make the patient a full code. This was double verified with MONICA Green. stated anger with providers, including verbal threats towards providers if his were to pass because "of their damn mistakes!" but "was very thankful that the nurses right now are telling me what was going on."
--- NOTE | 2020-03-06 20:45 | NUR ---
Discussed care with Dr. Escobar via telephone. Recieved parameters for dopamine drip.
--- NOTE | 2020-03-06 20:52 | NUR ---
0 Pause noted on hospital monitor. Patient alert and oriented. Denied pain or discomfort at that time. 1901 Second pause and heart rate of 22 noted on tele monitor. Patient remained alert and oriented with no complaints. Patient placed on defib/pacer pads and monitor. See other note for times and discussions with physicians. 1946 time out completed by Franky Rudd RN and Dr. Brown for central line placement. R) femoral line inserted at 2004. Patient alert and oriented throughout procedure, tolerated well. 2030 Patient moved to ICU room 8 with ICU staff. Tolerated well.
--- NOTE | 2020-03-06 21:10 | NUR ---
Patient appears tired but is alert and oriented. Denies any dizziness or pain. Reports shortness of air is resolving since application of oxygen. Explained will be intiating transfusion of PRBC's. Patient is agreeable and consent has been sighned. Will continue to monitor.
--- NOTE | 2020-03-06 21:30 | NUR ---
Updated via telephone. All questions and concerns addressed at this time.
[2020-03-07] VITALS (346 sets, daily range): BP systolic 165–195; BP diastolic 64–78; PULSE 57–61; TEMP 98–98.1; O2SAT 83–100
[2020-03-07 01:05] LABS: HEMATOCRIT 26.8 % (37.0-47.0); HEMOGLOBIN 8.8 g/dl (12.5-16.0)
--- NOTE | 2020-03-07 01:18 | NUR ---
Karolinaeny resting in bed with eyes shut; Denies any needs or concerns at this time. Will continue to monitor.
--- NOTE | 2020-03-07 01:39 | NUR ---
At 0118 patient went into brief run of a-fib then approximate 6 seconds pause. This nurse was in another patient's room. Gloria RN, went to check on patient. Reported some increased shortness of breath but HR returned to SR in mid 50's with no additional treatment. Sean on dopamine at 2.5 mcg/kg/min. This nurse checked on patient and reported that she was "good" now. VS stable will continue to monitor.
[2020-03-07 05:26] LABS: MEAN CELL VOLUME 91 fl (80.0-100.0); MEAN CORPUSCULAR HGB CONC 33 g/dl (33.0-37.0); MEAN PLATELET VOLUME 11.1 fl (7.4-10.4); PLATELET COUNT 145 K/mm3 (130-400); RED BLOOD COUNT 2.79 M/mm3 (4.10-5.30)
[2020-03-07 05:35] LABS: CALCIUM 8.4 mg/dL (8.4-10.2); CREATININE, serum 2.97 (0.52-1.25); HEMATOCRIT 25.4 % (37.0-47.0); HEMOGLOBIN 8.3 g/dl (12.5-16.0); MAGNESIUM 2.6 mg/dL (1.6-2.3); MEAN CORPUSCULAR HEMOGLOBIN 30 pg (27.0-31.0)
[2020-03-07 05:51] LABS: EOSINOPHIL 2 % (0-4); LYMPHOCYTE 10 % (20.0-51.0); NEUTROPHILS 85 % (42.0-75.2); PLATELET ESTIMATE NORMAL (NORMAL)
--- NOTE | 2020-03-07 09:07 | NUR ---
PT CURRENTLY NPO FOR PROBABLE PACEMAKER INSERTION. AWAITING DR DERAS TO ARRIVE TO DEVELOP PLAN OF CARE.
--- NOTE | 2020-03-07 10:13 | NUR ---
The patient's daughter, Gurdeep Sexton ([phone]) contacted on 03/06 about the patient's discharge plan. The patient would like to go home with [facility] and Gurdeep was in agreeance. Gurdeep works from home and will be staying with the patient and the patient's when she discharges. Will continue to follow.
--- NOTE | 2020-03-07 12:58 | NUR ---
REPORT CALLED TO ASA ANDERSON AT [facility].
--- NOTE | 2020-03-07 12:59 | NUR ---
PT'S UPDATED FREQUENTLY REGARDING TRANSFER. WILL CALL AND NOTIFY HIM WHEN PATIENT IS LEAVING
--- NOTE | 2020-03-07 13:19 | NUR ---
PATIENT TRANSFERRED TO EMS STRETCHER. REPORT PROVIDED TO EMS CREW. PATIENT AWAKE, ALERT AND ORIENTED. PT'S UPDATED ON PATIENT'S DEPARTURE ALONG WITH ASA ANDERSON IN [place]. PT'S BELONGINGS TRANSFERRED WITH PATIENT.
--- NOTE | 2020-03-07 13:20 | NUR ---
The patient transferred to [facility] in [place]. The patient's nurse contacted the patient's . SW contacted Caregivers RESIDENT DIRECTOR with the update. There are no additional needs at this time.
== END 2020-03-07 13:20 | disposition short-term general hospital (02) | DRG 480 ==
LOC: COL.ER 21:25 → SURG 23:00 → IMCU 02-29 16:40 → SURG 03-01 12:01 → IMCU 03-06 11:40 → ICU 03-06 20:17
PROVIDERS: Emergency Medicine; Nurse Practitioner; Nurse Practitioner Family; Orthopaedic Surgery; Physician Assistant; Student in an Organized Health Care Education/Training Program; ADMIT Hospitalist
PROC: 02703ZZ Dilation of Coronary Artery, One Artery, Percutaneous Approach (ICD-10-PCS; 2020-02-29)
PROC: 4A023N7 Measurement of Cardiac Sampling and Pressure, Left Heart, Percutaneous Approach (ICD-10-PCS; 2020-02-29)
PROC: B2111ZZ Fluoroscopy of Multiple Coronary Arteries using Low Osmolar Contrast (ICD-10-PCS; 2020-02-29)
PROC: 0QS706Z Reposition Left Upper Femur with Intramedullary Internal Fixation Device, Open Approach (ICD-10-PCS; principal; 2020-03-01 13:00)
PROC: 5A1D70Z Performance of Urinary Filtration, Intermittent, Less than 6 Hours Per Day (ICD-10-PCS; 2020-03-04)
DX: S72.142A Displaced intertrochanteric fracture of left femur, initial encounter for closed fracture (principal); N17.0 Acute kidney failure with tubular necrosis; I13.0 Hypertensive heart and chronic kidney disease with heart failure and stage 1 through stage 4 chronic kidney disease, or unspecified chronic kidney disease; I50.32 Chronic diastolic (congestive) heart failure; I25.110 Atherosclerotic heart disease of native coronary artery with unstable angina pectoris; E87.1 Hypo-osmolality and hyponatremia; N18.3 Chronic kidney disease, stage 3 (moderate); E78.5 Hyperlipidemia, unspecified; I48.0 Paroxysmal atrial fibrillation; J44.9 Chronic obstructive pulmonary disease, unspecified; N14.1 Nephropathy induced by other drugs, medicaments and biological substances; T50.8X5A Adverse effect of diagnostic agents, initial encounter; I49.5 Sick sinus syndrome; E87.5 Hyperkalemia; D63.1 Anemia in chronic kidney disease; R73.9 Hyperglycemia, unspecified; I95.1 Orthostatic hypotension; F17.210 Nicotine dependence, cigarettes, uncomplicated; Z95.5 Presence of coronary angioplasty implant and graft; Z86.73 Personal history of transient ischemic attack (TIA), and cerebral infarction without residual deficits; Z88.0 Allergy status to penicillin; W19.XXXA Unspecified fall, initial encounter
CPT/HCPCS: 99223-AI; 99232-AI; 99233-AI; 99239; A9284; A9500; C1713; C1725; C1769; C1887; J0282; J0360; J0461; J0583; J0690; J1100; J1170; J1265; J1644; J1815; J1940; J2250; J2270; J2370; J2405; J2550; J2704; J2785; J3010; J7030; J7060; J7512; P9016; Q9967